=== PATIENT | female | born 1985 | race Caucasian/White ===

== ENCOUNTER 2025-03-06 08:47 | Outpatient (CLI) | payer MEDICAID ==
[~2025-03-06 08:47] MED LIST: CYCL-1 PO; NO HOME MEDS
--- NOTE | 2025-03-06 10:49 | RADIOLOGY REPORT ---
EXAM: DI FOOT, COMPLETE (3VW MIN) CLINICAL INDICATION: LEFT FOOT PAIN TECHNIQUE: DI FOOT, COMPLETE (3VW MIN) Comparison: None FINDINGS/IMPRESSION: There is no evidence of acute fracture or dislocation. The visualized joint space is well maintained. The alignment is anatomical. There is no radiopaque foreign body.
== END 2025-03-06 23:59 | disposition home or self-care (01) ==
LOC: RAD 08:47
PROVIDERS: ATTEND Student in an Organized Health Care Education/Training Program
DX: M21.612 Bunion of left foot (principal)
CPT/HCPCS: 73630

== ENCOUNTER 2025-05-04 15:05 | Emergency (ER) | payer MEDICAID ==
[~2025-05-04] VITALS: Ht 152.4 cm; Wt 82.2 kg
[2025-05-04 15:11] VITALS: BP 148/96; PULSE 82; TEMP 97.7; O2SAT 99
[2025-05-04 17:57] VITALS: RESP 16
[2025-05-04] MEDS: ketorolac trometh 30MG/ML vial 30 MG/ML VIAL IM STA (17:57)
--- NOTE | 2025-05-04 18:02 | Physician Documentation ---
History of Present Illness ~ Chief Complaint: Back Pain Stated Complaint: BACK PAIN Time Seen by MD: 17:57 Primary Medical Doctor: [facility] HPI Patient is seen today with complaints of lower back pain that he occurred acutely after her autistic son who weighs about 70 lb jumped on her back while she was stooped over. Patient denies any numbness or tingling or sciatica or issues with her lower extremities or loss of strength. She has no new or other concern or complaint at this time. Patient denies any saddle anesthesia or changes in bowel or bladder habits. Patient states the pain has progressively worsened over the last couple of days and she needs to get better so that she can move into her new house. Medication Reconciliation Allergies: Coded Allergies: ketorolac (Verified Allergy, Severe, angio edema, 05/04/25) PT CAN TOLERATE OTHER IBUPROFEN Sulfa (Sulfonamide Antibiotics) (Verified Allergy, Intermediate, 05/04/25) Scheduled PRN Cyclobenzaprine* (Cyclobenzaprine*), 1 TABLET PO Q8H PRN for muscle spasms Miscellaneous Medications Home Med List (No Home Medications), (Reported) Past Medical History Past Medical History: *RENAL/*, Anxiety Past Surgical History: no surgical history Alcohol Use: None Drug Use: marijuana Lives with: Family Lives In: Home Review of Systems Constitutional: Denies: chills, fever, weakness Eyes: Denies: pain, blurred vision ENT: Denies: ear pain, nose pain, throat pain, mouth pain Respiratory: Denies: cough, shortness of breath Cardiovascular: Denies: chest pain, palpitations Gastrointestinal: Denies: abdominal pain, nausea, vomiting Genitourinary: Denies: burning, dysuria Female Genitalia: Denies: vaginal discharge, pelvic pain Neurological: Denies: headache, dizziness Musculoskeletal: Denies: pain, swelling Integumentary: Denies: rash, lesions Allergic/Immunologic: Denies: hives, itching Hematologic/Lymphatic: Denies: no symptoms reported Psychiatric: Denies: depression, anxiety Physical Exam Physical Exam Vital Signs: Temperature: 97.7, Source: Temporal, Heart Rate: 82, Respiratory Rate: 19, BP: 148/96, Pulse Oximetry: 99, Weight: 82.150 Physical Exam General: Awake and Alert, no acute distress. HEENT: Conjunctiva pink, Sclera clear, Mucus Membranes moist. Neck: Supple without masses and tenderness. Resp: Unlabored. Lungs clear to auscultation bilaterally. Heart: Regular Rate and rhythm, normal S1 and S2 without murmur, rub or gallop. Musculoskeletal: Patient on exam does have significant decreased range of motion of the lumbar spine in all planes of motion, patient is neurovascularly intact distally. Motor function intact distally. Strength intact distally. Extremities: No cyanosis,clubbing or edema. Skin: Warm and Dry. Progress Results/Orders Results/Orders Completed Orders - NORMA NAGEL Baclofen Tablet (Lioresal Tablet) (05/04/25 17:57) Ketorolac Trometh 30mg/Ml Vial (Toradol (05/04/25 17:57) Diphenhydramine Capsule (Benadryl Capsul (05/04/25 17:57) Acetaminophen 325mg Tablet (Tylenol Tabl (05/04/25 17:57) Vital Signs 05/04/25 15:11 Temp 97.7 Pulse 82 Resp 19 B/P (MAP) 148/96 Pulse Ox 99 Medical Decision Making Findings Patient is seen today with complaints of lower back pain that he occurred acutely after her autistic son who weighs about 70 lb jumped on her back while she was stooped over. Patient denies any numbness or tingling or sciatica or issues with her lower extremities or loss of strength. She has no new or other concern or complaint at this time. Patient denies any saddle anesthesia or changes in bowel or bladder habits. Patient states the pain has progressively worsened over the last couple of days and she needs to get better so that she can move into her new house. Patient did receive in the ED today Toradol 30 mg IM, baclofen 10 mg by mouth. Prescription of methocarbamol 750 mg one tab 3 times a day as well as meloxicam 15 mg one tab once a day to be taken with food sent to patient's pharmacy. Patient will follow up with primary care in 3-5 days if no better as needed sooner. Return to ED with any worsening, concerning or changing symptoms. Departure Disposition: HOME / SELF CARE / HOMELESS Impression: Primary Impression: Low back pain Qualified Codes: M54.50 - Low back pain, unspecified Condition: Improved Discharge Instructions: Acute Back Pain, Adult Additional Instructions: Patient did receive in the ED today Toradol 30 mg IM, baclofen 10 mg by mouth. Prescription of methocarbamol 750 mg one tab 3 times a day as well as meloxicam 15 mg one tab once a day to be taken with food sent to patient's pharmacy. Patient will follow up with primary care in 3-5 days if no better as needed sooner. Return to ED with any worsening, concerning or changing symptoms. Referrals: NO PRIMARY CARE PROVIDER (PCP) Prescriptions Meloxicam (Meloxicam) 15 Mg Tablet 1 TAB PO DAILY for 30 Days, #30 TAB 0 Refills Prov: NORMA NAGEL 05/04/25 Methocarbamol (Methocarbamol) 750 Mg Tablet 1 TAB PO Q8H for 30 Days, #90 TAB 0 Refills Prov: NORMA NAGEL 05/04/25 Signature Scribe Signature: No scribe Attestation: No scribe NORMA NAGEL May 04, 2025 18:01
[2025-05-04] MEDS ORDERED: METH-798 PO (19:08)
[2025-05-04] MEDS ORDERED: MELO-102 PO (19:08)
== END 2025-05-04 19:50 | disposition home or self-care (01) ==
LOC: ER 15:06
DX: M54.50 Low back pain, unspecified (principal); Z88.2 Allergy status to sulfonamides; Z88.6 Allergy status to analgesic agent
CPT/HCPCS: 96372; 99284; J1885; J7030; Q0163